=== PATIENT | female | born 1990 | race Caucasian/White ===

== ENCOUNTER 2016-10-25 19:20 | Observation (INO) | payer OTHER ==
[~2016-10-25] VITALS: Ht 167.6 cm; Wt 93.4 kg
[2016-10-25] MEDS ORDERED: PRENATAL1 TAB PO (21:36)
--- NOTE | 2016-10-27 08:27 | Provider's Discharge Care Plan ---
Problem, Goal, Plan Problem List 1. Post-dates Goals: Improved health/wellness Instructions: Follow up as directed
--- NOTE | 2016-10-27 08:27 | Provider's Discharge Care Plan ---
Problem, Goal, Plan Problem List 1. Post-dates Goals: Improved health/wellness Instructions: Follow up as directed
--- NOTE | 2016-10-27 19:19 | DISCHARGE SUMMARY ---
ADMIT DATE: 10/25/2016 DISCHARGE DATE: 10/27/2016 ADMITTING DIAGNOSIS: 1. A 26-year-old, G1, P0, at 40-3/7 weeks' gestation, here for postdates induction DISCHARGE DIAGNOSES: 1. A 26-year-old G1, P0, now at 40-5/7 weeks' gestation with failed postdates induction 3. Reactive contraction stress test BRIEF HISTORY: This is a 26-year-old G1, P0, currently at 40 and 3/7 weeks' gestation, presenting for postdates induction. HOSPITAL COURSE: The patient was admitted to the hospital and started on Cytotec. She did have some cervical change with the Cytotec. We were unable to continue the Cytotec due to the frequency of her contractions and she was transferred to Pitocin. The Pitocin was titrated to a maximum dose of 12 units. When this did not make much change she was then decreased down to 4 units and run overnight. This did not produce change, either. I discussed the option of trying a cervical ripening balloon with the patient; however, she declined this option. PHYSICAL EXAMINATION: VITAL SIGNS: Stable. GENERAL: This is a well-appearing female lying in bed in no apparent distress. HEENT: Head is atraumatic, normocephalic. ABDOMEN: The patient is gravid. heart tones show moderate variability with a normal baseline and no decelerations and plenty of accelerations. The patient is [place] intermittently currently. DISCHARGE INSTRUCTIONS/MEDICATIONS: Discharge plan: The patient was discharged to home with follow up with Dr. Velasquez on Sunday and plans to repeat the induction next Sunday. Diet: Regular. Activity: Up ad cuong. Discharge medications: vitamins 1 tablet p.o. daily.
== END 2016-10-27 09:30 | disposition home or self-care (01) ==
LOC: OB SRH 19:20
PROVIDERS: ADMIT Family Medicine
PROC: 3E0P7GC Introduction of Other Therapeutic Substance into Female Reproductive, Via Natural or Artificial Opening (ICD-10-PCS; principal; 2016-10-25)
PROC: 3E033VJ Introduction of Other Hormone into Peripheral Vein, Percutaneous Approach (ICD-10-PCS; 2016-10-26)
DX: O48.0 Post-term pregnancy (principal); O61.0 Failed medical induction of labor
CPT/HCPCS: 29243; 29244; 40003; 40021; 95059

== ENCOUNTER 2016-10-30 10:42 | Inpatient (IN) | payer OTHER ==
[~2016-10-30] VITALS: Ht 167.6 cm; Wt 94.3 kg
[~2016-10-30 10:42] MED LIST: PRENATAL1 TAB PO
--- NOTE | 2016-10-30 18:23 | Progress Note ---
Subjective General Patient doing well. VE complete +2 FHT 140 + acels no decels A/P: Term SROM progressed to complete.; Pit augmentation. expectant management.
--- NOTE | 2016-10-30 18:23 | Progress Note ---
Subjective General Patient doing well. VE complete +2 FHT 140 + acels no decels A/P: Term SROM progressed to complete.; Pit augmentation. expectant management.
[2016-10-30 20:45] VITALS: BP 133/76
[2016-10-30 21:00] VITALS: BP 128/77
--- NOTE | 2016-10-30 21:00 | Progress Note ---
Subjective General uncomplicated full note dicated. Had some increase bleed post and given cytotec. 1degree lac not repaired.
--- NOTE | 2016-10-30 21:00 | Progress Note ---
Subjective General uncomplicated full note dicated. Had some increase bleed post and given cytotec. 1degree lac not repaired.
[2016-10-30 21:15] VITALS: BP 142/80
[2016-10-30 21:30] VITALS: BP 140/79
--- NOTE | 2016-10-30 21:46 | DELIVERY SUMMARY ---
DELIVERY DATE: 10/30/2016 ATTENDING PHYSICIAN/PROVIDER: Scott Velasquez MD PREPROCEDURE DIAGNOSES: 1. Intrauterine postdates 2. Spontaneous rupture of membranes 3. Pitocin augmentation 4. Epidural POSTPROCEDURE DIAGNOSES: 1. Intrauterine postdates 2. Spontaneous rupture of membranes 3. Pitocin augmentation 4. Epidural PROCEDURE PERFORMED: 1. Normal spontaneous vaginal delivery SURGICAL TECHNIQUE: The patient is a 26-year-old G2, P0, now P1, who presented to labor and delivery with spontaneous rupture of membrane after clinic evaluation today. She had Pitocin augmentation of labor and then an in occiput anterior position. There was no nuchal cord. Baby was bulb suctioned on perineum and then delivered up to the mom. Initially baby did well, good movement, a little cry and then had some brief slow breathing. She was given minimal assistance and then brought back to mom. The mom had a first-degree laceration inferior to her vaginal region that did not need repair. She did have about just under a liter of estimated blood loss and given Cytotec, which resolved her bleeding nearly instantaneously and then she had a nice firm uterus as well after the bleeding had stopped. The placenta was delivered spontaneously intact and there was a 3-vessel cord. Both mom and baby are doing well post-delivery.
[2016-10-30 22:30] VITALS: BP 117/77
[2016-10-30 23:00] VITALS: BP 120/74
--- NOTE | 2016-10-31 08:17 | Progress Note ---
Subjective General Is doing well at this time. No issues. Physical Exam Vital Signs / I&Os Vital Signs Date Time Temp Pulse Resp B/P Pulse O2 O2 Flow FiO2 Ox Delivery Rate 10/30 2300 98.2 108 18 120/74 10/30 2300 98.2 108 18 120/74 10/30 2230 116 18 117/77 10/30 2130 98.2 18 18 140/79 10/30 2115 108 18 142/80 10/30 2100 127 20 128/77 10/30 2045 120 20 133/76 I&O 10/31 0000 10/30 1600 10/30 0800 Intake Total 1675 Output Total 300 Balance 1375 General Appearance Alert, Cooperative HEENT Normal exam Lungs Clear to auscultation, Normal air movement Cardiovascular Regular rate and rhythm, No murmurs, gallops, rubs Extremities No edema LAB Results Laboratory Tests 10/30 1130 Hematology WBC (4.5 - 11.5 K/uL) 11.5 RBC (4.00 - 5.20 M/uL) 3.76 Hgb (12.0 - 16.0 gm/dL) 12.2 Hct (36.0 - 46.0 %) 35.7 MCV (80 - 100 fL) 95 MCH (26 - 34 pg) 33 RDW (11.6 - 14.8 %) 14.2 Neut % (Auto) (50 - 75 %) 87.5 Lymph % (Auto) (25 - 40 %) 7.8 [place] % (Auto) (3 - 14 %) 4.6 Eos % (Auto) (0 - 4 %) 0.1 Baso % (Auto) (0 - 2 %) 0 Plt Count, EDTA (150 - 400 K/uL) 149 PUBS MCHC (31 - 37 g/dL) 34 Assessment and Plan Problem List 1. Post-dates Plan Patient is here for f/u post . Doing well overall no concerns per patient or nursing.
[2016-10-31 08:29] VITALS: BP 117/72
--- NOTE | 2016-10-31 08:32 | Provider's Discharge Care Plan ---
Problem, Goal, Plan Problem List 1. Post-dates Instructions: f/u 6week pp check, routine post care, ashlie at f/u; ok DORON pack
--- NOTE | 2016-10-31 08:32 | Provider's Discharge Care Plan ---
Problem, Goal, Plan Problem List 1. Post-dates Instructions: f/u 6week pp check, routine post care, ashlie at f/u; ok DORON pack
[2016-10-31 16:00] VITALS: BP 111/68
[2016-10-31 20:30] VITALS: BP 112/60
== END 2016-10-31 22:00 | disposition home or self-care (01) | DRG 774 ==
LOC: OBC SRH 10:42 → OB SRH 10:45 → OBC SRH 11:30 → OB SRH 10-31 13:46
PROVIDERS: ADMIT Family Medicine
PROC: 10E0XZZ Delivery of Products of Conception, External Approach (ICD-10-PCS; principal; 2016-10-30)
DX: O70.0 First degree perineal laceration during delivery (principal); O72.1 Other immediate postpartum hemorrhage; Z37.0 Single live birth; O48.0 Post-term pregnancy; Z3A.40 40 weeks gestation of pregnancy
CPT/HCPCS: 40011; 80276; 82221; 83411; 95059